=== PATIENT | male | born 1960 | race Caucasian/White ===

== ENCOUNTER 2020-01-27 11:52 | Outpatient (NON) | payer OTHER, SELFPAY ==
[2020-01-28 00:38] LABS: SARS-CoV-2 RNA PCR Negative
== END 2020-01-27 11:53 ==
PROVIDERS: PCP Internal Medicine; Visit Provider Internal Medicine
DX: Z20.828 Contact with and (suspected) exposure to other viral communicable diseases (principal)
CPT/HCPCS: 87635; C9803; U0003

== ENCOUNTER 2020-03-15 08:27 | Outpatient (CLI) | payer OTHER, SELFPAY ==
--- NOTE | ~2020-03-15 | NM_ITS ---
EXAMINATION: NM stress w perf spect multi DATE: 03/15/2020 11:24 INDICATION: Chest pain, unspecified. TECHNIQUE: Rest images were obtained following intravenous administration of 9.75 mCi Tc99m tetrofosm in (Myoview). The patient performed an exercise activity. At peak exercise, 27.6 mCi Tc99m tetrofosmi n (Myoview) was administered intravenously, and stress images were obtained. Data was reconstructed i nto short axis and horizontal and vertical long axis SPECT images. Gated SPECT images were also obtai dmitri. COMPARISON: None. FINDINGS: There is no definite reversible or fixed perfusion abnormality to suggest ischemia or infar ction. There is no segmental wall motion abnormality. Left ventricular ejection fraction measures > 70%. IMPRESSION: 1. No definite ischemia or infarct. 2. Normal left ventricular ejection fraction measuring >70%. Reviewed, dictated and finalized at location A. TORTILLA
--- NOTE | 2020-03-15 09:15 | EST_ITS ---
Patient Info Name: Elmo Monet Age: 59 years : 1960 Gender: Male Ht: 74 in Wt: 295 lbs BSA: 2.69 m2 Exam Date: 03/15/2020 9:50 AM Exam Location: [facility] Stress Patient Status: Outpatient Admit Date: 03/15/2020 Staff Ordering Physician: Mahad Barrios MD Attending Provider: Mahad Barrios MD Exercise Technologist: Ariadna Galarza RDCS Exercise Physician: Pablo Connors DO Exam Type: CA stress test treadmill w NM Study Info Indications R07.9 - Chest pain, unspecified A pharmacological stress test was performed. Summary 1. 1. Negative Kavon exercise stress test for ischemic ST changes by ECG criteria. 2. 2. Good functional capacity, achieving 10 METs of workload. 3. 3. Appropriate HR response to exercise. 4. 4. Appropriate HR recovery at 1 minute post exercise. 5. 5. Nuclear scan to follow and will be reported separately. Please correlate with it. 6. 6. Patient informed of the above results. Protocol: Kavon Stress ECG Details Stage: REST Duration (min): 1 min : 52 sec Speed (mph): 0.0 Grade (%): 0 HR (bpm): 70 SBP (mmHg): 142 DBP (mmHg): 84 METS: --- Stage: REST Duration (min): 13 min : 21 sec Speed (mph): 0.0 Grade (%): 0 HR (bpm): 74 SBP (mmHg): 142 DBP (mmHg): 84 METS: --- Stage: STAGE 1 Duration (min): 1 min : 0 sec Speed (mph): 1.7 Grade (%): 10 HR (bpm): 92 SBP (mmHg): 142 DBP (mmHg): 84 METS: --- Stage: STAGE 1 Duration (min): 2 min : 0 sec Speed (mph): 1.7 Grade (%): 10 HR (bpm): 102 SBP (mmHg): 142 DBP (mmHg): 84 METS: --- Stage: STAGE 1 Duration (min): 3 min : 0 sec Speed (mph): 1.7 Grade (%): 10 HR (bpm): 105 SBP (mmHg): 142 DBP (mmHg): 84 METS: --- Stage: STAGE 2 Duration (min): 1 min : 0 sec Speed (mph): 2.5 Grade (%): 12 HR (bpm): 111 SBP (mmHg): 166 DBP (mmHg): 64 METS: --- Stage: STAGE 2 Duration (min): 2 min : 0 sec Speed (mph): 2.5 Grade (%): 12 HR (bpm): 115 SBP (mmHg): 174 DBP (mmHg): 68 METS: --- Stage: STAGE 2 Duration (min): 3 min : 0 sec Speed (mph): 2.5 Grade (%): 12 HR (bpm): 118 SBP (mmHg): 174 DBP (mmHg): 68 METS: --- Stage: STAGE 3 Duration (min): 1 min : 0 sec Speed (mph): 3.4 Grade (%): 14 HR (bpm): 131 SBP (mmHg): 195 DBP (mmHg): 76 METS: --- Stage: STAGE 3 Duration (min): 2 min : 0 sec Speed (mph): 3.4 Grade (%): 14 HR (bpm): 135 SBP (mmHg): 195 DBP (mmHg): 76 METS: --- Stage: STAGE 3 Duration (min): 3 min : 0 sec Speed (mph): 3.4 Grade (%): 14 HR (bpm): 134 SBP (mmHg): 185 DBP (mmHg): 92 METS: --- Stage: RECOVERY Duration (min): 0 min : 59 sec Speed (mph): 0.0 Grade (%): 0 HR (bpm): 129 SBP (mmHg): 191 DBP (mmHg): 74 METS: --- Stage: JAZ
== END 2020-03-15 08:28 | disposition home or self-care (01) ==
PROVIDERS: PCP Internal Medicine; Visit Provider Internal Medicine
DX: R07.89 Other chest pain (principal)
CPT/HCPCS: 78452; 93017; A9502

== ENCOUNTER → 2020-10-12 10:03 | Outpatient (CLI) | payer OTHER, SELFPAY ==
[2020-10-13 16:32] LABS: SARS-CoV-2 RNA PCR Negative
== END ==
PROVIDERS: PCP Family Medicine; Visit Provider Family Medicine
DX: R05 Cough (principal); Z20.822 Contact with and (suspected) exposure to COVID-19
CPT/HCPCS: C9803; U0003; U0005

== ENCOUNTER 2020-11-01 08:04 | Outpatient (CLI) | payer OTHER, SELFPAY ==
--- NOTE | ~2020-11-01 | US_ITS ---
EXAMINATION: US art doppler w press LE BI DATE: 11/01/2020 09:06 INDICATION: Diabetic with hypercholesterolemia ascending with claudication, numbness and pain at the lower limbs. TECHNIQUE: Segmental pressures and plethysmographic and Doppler waveforms of the brachial and lower e xtremity arteries were obtained. COMPARISON: None. FINDINGS: Right and left brachial artery pressures of 148 mm Hg and 142 mm Hg, respectively, are concordant (no rmal difference <= 30 mmHg). The right and left high-thigh pressure indices are 1.13 and 1.24, respec tively (normal > 1.2). The right ankle-brachial index (SRINATH) is 1.09 (normal >= 0.9-1). The right great toe-brachial index (T BI) is 0.60 (normal >= 0.6-0.8). The right lower extremity segmental pressure gradients are normal (n ormal gradients <= 20-30 mmHg between adjacent levels on the same leg or the same levels on the two l egs). Arterial waveforms are triphasic at the right common femoral, superficial femoral and dorsalis pedis arteries and biphasic at the right popliteal and posterior tibial arteries with brisk systolic upstrokes throughout. The left SRINATH is 1.05. The left TBI is 0.82. The left lower extremity segmental pressure gradients are normal. Arterial waveforms are triphasic with brisk systolic upstrokes throughout the arteries of th e left lower limb. IMPRESSION: 1. Normal SRINATH's and TBI's bilaterally. No significant arterial occlusive disease. Reviewed, dictated and finalized at location A. IMPRESSION: 1. Normal SRINATH's and TBI's bilaterally. No significant arterial occlusive diseas e.
== END 2020-11-01 08:05 | disposition home or self-care (01) ==
PROVIDERS: PCP Family Medicine; Visit Provider Family Medicine
DX: R09.89 Other specified symptoms and signs involving the circulatory and respiratory systems (principal)
CPT/HCPCS: 93923

== ENCOUNTER → 2022-12-27 16:04 | Outpatient (CLI) | payer OTHER, SELFPAY ==
--- NOTE | ~2022-12-27 | XR_ITS ---
EXAMINATION: XR lumbar spine 6V w bending DATE: 12/27/2022 16:32 INDICATION: Low back pain TECHNIQUE: Anteroposterior, lateral in neutral, flexion and extension, and bilateral oblique views of the lumbar spine, and cone-down lateral view of the lumbosacral junction were obtained. COMPARISON: 05/13/2014 FINDINGS: Bone alignment is normal. There is no hypermobility with flexion or extension. There is mod erate loss of intervertebral disc space height at L3-4 and L4-5 without significant change. There is mild loss of disc space height throughout the remainder of the lumbar spine. The vertebral body heigh ts are maintained. There is no fracture. There is moderate to severe facet joint osteoarthritis of th e lower lumbar spine. IMPRESSION: 1. Moderate lumbar spondylosis with interval worsening. Reviewed, dictated and finalized at location L.
== END ==
PROVIDERS: PCP Physician Assistant; Visit Provider Physician Assistant
DX: M54.50 Low back pain, unspecified (principal); M47.896 Other spondylosis, lumbar region
CPT/HCPCS: 72114

== ENCOUNTER → 2023-01-05 15:27 | Outpatient (CLI) | payer OTHER, SELFPAY ==
--- NOTE | ~2023-01-05 | MR_ITS ---
MRI of the lumbar spine Clinical History: Back pain Technique: Axial T2-weighted images, and sagittal T1-weighted, T2-weighted, and T2 fat-sat images wer e acquired. Findings: There is no fracture or subluxation of the lumbar spine. Vertebral bodies maintain normal h eight and alignment. No suspicious bone marrow signal abnormality seen. At L1-L2, there is no significant disc bulge or herniation. There is mild to moderate facet arthropat hy. No central canal stenosis or neural foraminal narrowing. At L2-L3, there is minimal disc bulge with moderate to advanced facet arthropathy. No central canal s tenosis. There is mild left neural foraminal narrowing. Right neural foramen preserved. At L3-L4, there is mild disc bulge and moderate facet arthropathy. No central canal stenosis. There i s and mild to moderate right neural foraminal narrowing, and mild left neural foraminal narrowing. At L4-L5, there is mild disc bulge and moderate facet arthropathy. No central canal stenosis. There i s moderate to advanced left neural foraminal narrowing, and moderate right neural foraminal narrowing . At L5-S1, there is minimal disc bulge with moderate to severe facet arthropathy. No central canal jeffy nosis. There is mild to moderate left neural foraminal narrowing, and moderate right neural foraminal narrowing. Paravertebral soft tissues are unremarkable. Impression: [id number] degenerative spondylosis, with multilevel neural foraminal narrowing, as detailed ab danni. Reviewed, dictated and finalized at [facility]. Impression: [id number] degenerative spondylosis, with multilevel neural foraminal jonathan rowing, as detailed above.
== END ==
PROVIDERS: PCP Physician Assistant; Visit Provider Physician Assistant
DX: M43.06 Spondylolysis, lumbar region (principal)
CPT/HCPCS: 72148

== ENCOUNTER 2023-11-20 08:57 | Outpatient (CLI) | payer MEDICARE, OTHER, SELFPAY | END 2023-11-20 08:58 | disposition home or self-care (01) | LOC: ANHAUDIO 08:58 | PROVIDERS: PCP Internal Medicine; Visit Provider Internal Medicine | DX: H90.3 Sensorineural hearing loss, bilateral (principal) | CPT/HCPCS: 92557; 92567 ==

== ENCOUNTER 2023-12-05 08:43 | Outpatient (CLI) | payer MEDICARE, OTHER, SELFPAY ==
--- NOTE | ~2023-12-05 | XR_ITS ---
[id number]_[id number] Ordering provider: Pedro Gallardo DO History: . M54.2 - Cervicalgia . Comparison: None. FINDINGS: VERTEBRAL BODIES: Normal height and alignment. No visible fracture or subluxation. The dens is intact . DISK SPACES: Narrowing of the disc C4-C5, C5-C6 and C6-C7. Uncovertebral joint disease is also seen a t the same levels. Multilevel facet joint disease. PARASPINOUS SOFT TISSUES: No prevertebral soft tissue swelling. IMPRESSION: No acute osseous abnormality cervical spine. Reviewed, dictated and finalized at location A.
== END 2023-12-05 08:44 ==
PROVIDERS: PCP Internal Medicine; Visit Provider Internal Medicine
DX: M54.2 Cervicalgia (principal)
CPT/HCPCS: 72040

== ENCOUNTER 2024-03-24 08:00 | Outpatient (RCR) | payer MEDICARE, OTHER, SELFPAY ==
--- NOTE | 2023-12-31 16:58 | PTOPEVAL1 ---
Assessment and note entered by Sharifa Luis, PT Evaluation Information Assessment Status Evaluation Diagnosis neck pain and back pain ICD-10 Condition Codes (PT) Cervicalgia M54.2,Pain in low back M54.50,Weakness R53.1 Onset many years Subjective Information Has been dealing with this but is worsening Neck is tight, difficulty with driving. 2000 had a skull fracture that may have had an effect Can hear neck creaking and cracking Low back is a constant ache midline where back meets tailbone. Sitting aggravates it. Bending and picking up items irritates it. Difficulty putting on pants and sometimes will shoot down into right testicle. notices primarily with lifting LLE Notices maybe some ED related to back pain. Has had medication of OTC Tylenol and Ibuprofen. Has prescribed muscle relaxers, but doesn't like to take these Likes to do stretches, the homes TENS unit and is using this 5-6 days a week. 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 Stretches that doctor provided in the last couple years. Reported Pain Level Pain Score 1,1: Self Report Assessment PT Clinical Summary Pt presents with neck and back pain that has worsened over time. MRI from lumbar in the past shows multi-level degenerative changes, cervical spine is severely restricted in ROM with x-rays showing lack of cervical lordosis and decreased disc height throughout. Thoracic spine is also significantly restricted in motion. Pt also demo's some mild to moderate flexibility deficits in the hamstrings, quads, hip flexors and piriformis muscles. Lumbopelvic core musculature weakness is also a factor. Pt will greatly benefit from physical therapy to address deficits, reduce pain, and improve function to allow most active, independent, and pain-free lifestyle. Plan of Care Interventions Electrical Stimulation,Hot Pack/Cold Pack,Manual Therapy,Mechanical Traction,Neuro Re-education, Patient/Caregiver Educati,Therapeutic Activities, Therapeutic Exercise,Self-Care/Home Management, Ultrasound Other Interventions IASTM, taping PT Services Indicated Yes Treatment Frequency and 2x weekly x 20 visits Duration These treatments will address the objective and functional deficits as defined above. The patient will be advanced safely and appropriately in order for the patient to progress towards his/her prior level of function. Additional exercises will be introduced and as well as a comprehensive home exercise program upon discharge, if needed, ?to ensure carryover of functional gains achieved in the clinic. This treatment plan has been reviewed and agreement upon by the patient.
--- NOTE | 2023-12-31 16:58 | OPREHPOC ---
Outpatient Therapy Plan of Care This is a Multidisciplinary Plan of Care that may contain components documented by all disciplines (PT, OT, and ST.) PT Problem 1 PT Problem #1 Knowledge Deficit PT Goal 1 Goal / Goal Update Pt will be independent in HEP Pt will verbalize understanding of diagnosis and prognosis Target Visit 10 PT Problem 2 PT Problem #2 Pain PT Goal 1 Goal / Goal Update Pt will report lowest pain rating at 0/10 to show improvement in overall discomfort Target Visit 10 PT Goal 2 Goal / Goal Update Pt will report greatest pain level at 3/10 or less to improve ADLs and activities Target Visit 20 PT Problem 3 PT Problem #3 Impaired Flexibility PT Goal 1 Goal / Goal Update Pt will show only minimal flexibility deficits in issa piriformis mm Target Visit 10 PT Goal 2 Goal / Goal Update Pt will demo only mild flexibility deficit in hip flexors Target Visit 20 PT Problem 4 PT Problem #4 Impaired Range of Motion PT Goal 1 Goal / Goal Update Cervical ROM will show a 10 degree increase in all tested planes thoracic ROM will increase to only 50% restriction PT Goal 2 Goal / Goal Update Cervical ROM will show a 20 degree increase in all tested planes Pt will demo full lumbar ROM without pain PT Problem 5 PT Problem #5 Impaired Strength PT Goal 1 Goal / Goal Update TRAM will demo 3+/5 strength Target Visit 10 PT Goal 2 Goal / Goal Update Gluteus medius will demo 4+/5 strength issa Gluteus obie will demo 5/5 strength issa
--- NOTE | 2024-02-11 15:58 | PTOPPROG ---
Assessment and note entered by Sharifa Luis, PT Evaluation Information Assessment Status Progress Diagnosis neck pain and back pain ICD-10 Condition Codes (PT) Cervicalgia M54.2,Pain in low back M54.50,Weakness R53.1 Onset many years Subjective Information Reports increased pain for two days after lumbar traction last session. Had to take a pain pill because of discomfort. Sitting is still limited to a half hour. Bending still irritating, and pain shooting with dressing LE has resolved (but reports feels it had been resolved when started therapy) Neck with driving is still painful. Is still able to drive but is painful. Can only turn so far. Still feels as tight as it had previously. States feels that sessions are beneficial but has not seen improvement yet. Will feel sore and fatigued after sessions. Assessment PT Clinical Summary Pt continues to report neck and back pain that he reports he is able to perform activities with but in a limited capacity and with pain. Cont to have pain with bending at back, and turning with cervical spine. Today also demo's symptoms of pelvic upslip and T8 rotation causing discomfort. Greatest pain for low back has decreased from 7/10 to 4/10, thought Oswestry remains exactly the same as well as ROM measurements. Cervical spine pain reports are grossly the same as well, ROM is the same, and reports of function are the same. Pt demo's mild increase in strength with testing today. Plan of Care Interventions Electrical Stimulation,Hot Pack/Cold Pack,Manual Therapy,Mechanical Traction,Neuro Re-education, Patient/Caregiver Educati,Therapeutic Activities, Therapeutic Exercise,Self-Care/Home Management, Ultrasound Other Interventions IASTM, taping PT Services Indicated Yes Treatment Frequency and continue 1-2x weekly x 10 visits Duration These treatments will address the objective and functional deficits as defined above. The patient will be advanced safely and appropriately in order for the patient to progress towards his/her prior level of function. Additional exercises will be introduced and as well as a comprehensive home exercise program upon discharge, if needed, ?to ensure carryover of functional gains achieved in the clinic. This treatment plan has been reviewed and agreement upon by the patient.
--- NOTE | 2024-03-24 10:36 | PTOPPROG ---
Assessment and note entered by Sharifa Luis, PT Evaluation Information Assessment Status Progress Diagnosis neck pain and back pain ICD-10 Condition Codes (PT) Cervicalgia M54.2,Pain in low back M54.50,Weakness R53.1 Onset many years Subjective Information Self-perceived improvement: 20-25% Neck with driving is stiff, and tight. When I do too much is when the issue comes, but has been pretty good overall. Getting dressed and lifting left leg is much better. Reports still has difficulty with bending, but also states is not aware of bending correctly just reacts . Long periods in crouched position increases back pain. Assessment PT Clinical Summary Pt has attended therapy consistently for back and neck pain. Reports only feeling 20-25% improved overall, but does not LE dressing is greatly improved. Pt shows greatest improvement in lumbar ROM. However cont to have pain in R sacroiliac area with motion and resistance testing. Cont to demo sacral torsion and alignment deficits that improve with muscle energy techniques but then revert back. Added heel lift today to left shoe while patient is waiting for his ordered heel lift in the mail. Pt also demo's atrophy/weakness of gluteus minimus that is progressing slowly. Also discussed with patient importance of applying his education in therapy such as lifting and positioning if he wants to make improvements. Also discussed more aggressive POC this next round for improvement in overall motion and strength. Pt will benefit from continued therapy to continue progressing at a more aggressive rate and improve overall pain and function. Plan of Care Interventions Electrical Stimulation,Hot Pack/Cold Pack,Manual Therapy,Mechanical Traction,Neuro Re-education, Patient/Caregiver Educati,Therapeutic Activities, Therapeutic Exercise,Self-Care/Home Management, Ultrasound Other Interventions TENS/NMES unit, taping, bracing PT Services Indicated Yes Treatment Frequency and 1-2x weekly x 10 visits Duration These treatments will address the objective and functional deficits as defined above. The patient will be advanced safely and appropriately in order for the patient to progress towards his/her prior level of function. Additional exercises will be introduced and as well as a comprehensive home exercise program upon discharge, if needed, ?to ensure carryover of functional gains achieved in the clinic. This treatment plan has been reviewed and agreement upon by the patient.
--- NOTE | 2024-03-24 15:48 | PCPTNOTE ---
This treatment is being continued on visit number [id number]. Please see documentation on both accounts to view progress. Completed interventions, outcomes, and problems have been marked as Inactive to facilitate the copying of the Care plan routine for recurring accounts.
== END 2024-03-24 15:38 | disposition still patient (30) ==
LOC: ANHHIPT 08:00
PROVIDERS: PCP Internal Medicine; Visit Provider Internal Medicine
DX: M54.50 Low back pain, unspecified (principal); M54.12 Radiculopathy, cervical region
CPT/HCPCS: 97012; 97014; 97110; 97112; 97140; 97161; 97750; G0283

== ENCOUNTER 2024-06-16 10:30 | Outpatient (RCR) | payer MEDICARE, OTHER, SELFPAY ==
--- NOTE | 2024-05-13 17:01 | PTOPPROG ---
Assessment and note entered by Sharifa Luis, PT Evaluation Information Assessment Status Re-evaluation Diagnosis neck pain and back pain ICD-10 Condition Codes (PT) Cervicalgia M54.2,Weakness R53.1,Pain in low back M54.50 Onset many years Subjective Information Self-perceived improvement: 50-55% getting exercises done 4-5x weekly. Neck is still stiff with driving and turning head Back hurts up to a 4-5/10 with doing things like chipping ice. Has been walking the track at [facility] and is doing fine. Reports bending is still the issue. Also is not the bending and standing but the bending and staying in that position. Gets worse the longer in position. Assessment PT Clinical Summary Pt has attended therapy consistently for back and neck pain. shift in focus after last reevaluation for increasing hip ROM, stabilization of lumbar spine, and addressing leg length discrepancy appears to have improved both neck and back pain. Pt cont to have the worst pain with stopped positioning for long periods, does not appear to be completely compliant with instructions related to modifications of these activities due to the nature of positioning required for his activities. Is more compliant with exercise reports this last plan of care. Has improved in strength as well overall, but has not met all his therapy goals yet . Thus patient will benefit from continued physical therapy to increase intensity of strengthening and stabilization and prepare patient for independent maintenance at home after discharge from services. Plan of Care Interventions Electrical Stimulation,Hot Pack/Cold Pack,Manual Therapy,Mechanical Traction,Neuro Re-education, Patient/Caregiver Education,Therapeutic Activities ,Therapeutic Exercise,Self-Care/Home Management, Ultrasound,Other Other Interventions taping, bracing PT Services Indicated Yes Treatment Frequency and 1x weekly x 10 visits Duration These treatments will address the objective and functional deficits as defined above. The patient will be advanced safely and appropriately in order for the patient to progress towards his/her prior level of function. Additional exercises will be introduced and as well as a comprehensive home exercise program upon discharge, if needed, ?to ensure carryover of functional gains achieved in the clinic. This treatment plan has been reviewed and agreement upon by the patient.
--- NOTE | 2024-06-17 11:36 | PCPTNOTE ---
This treatment is being continued on visit number [id number]. Please see documentation on both accounts to view progress. Completed interventions, outcomes, and problems have been marked as Inactive to facilitate the copying of the Care plan routine for recurring accounts.
== END 2024-06-17 11:35 | disposition still patient (30) ==
LOC: ANHHIPT 10:30
PROVIDERS: PCP Internal Medicine; Visit Provider Internal Medicine
DX: M54.50 Low back pain, unspecified (principal); M54.12 Radiculopathy, cervical region
CPT/HCPCS: 97014; 97110; 97140; 97530; 97750; G0283

== ENCOUNTER 2024-06-24 07:56 | Outpatient (CLI) | payer MEDICARE, OTHER, SELFPAY | END 2024-06-24 07:57 | disposition home or self-care (01) | LOC: MICIMG 07:57 | PROVIDERS: PCP Internal Medicine; Visit Provider Internal Medicine | DX: K76.0 Fatty (change of) liver, not elsewhere classified (principal); R79.89 Other specified abnormal findings of blood chemistry | CPT/HCPCS: 76705 ==

== ENCOUNTER 2024-07-21 08:00 | Outpatient (RCR) | payer MEDICARE, OTHER, SELFPAY ==
--- NOTE | 2024-06-17 11:36 | PCPTNOTE ---
The treatment documented on this account is a continuation of the treatment documented on visit number [id number]. Please see documentation on both accounts to view progress. The Plan of Care has been transitioned and updated within the new V#. I have addressed and agree with the discipline specific Problems, Interventions, and Goals for the current certification period. Completed interventions, outcomes, and problems have been marked as Inactive to facilitate the copying of the Care plan routine for recurring accounts.
--- NOTE | 2024-07-21 08:57 | PTOPDC ---
Assessment and note entered by Sharifa Luis, PT Evaluation Information Assessment Status Discharge Diagnosis neck pain and back pain ICD-10 Condition Codes (PT) Cervicalgia M54.2,Weakness R53.1,Pain in low back M54.50 Onset many years Subjective Information Pt reports overall improvement at 79% Stiffness with bending over and bringing feet up without pain. Turning neck is improved Reported Pain Level Pain Score 0,1: Self Report Assessment PT Clinical Summary Pt has attended therapy consistently for both neck and back pain arthritis type presentation with additional curvature related to leg length discrepancy. Pt has applied heel lift to level pelvis in standing, improved ROM of multiple body parts, improved strength of multiple body parts and reports pain staying in mild ranges at all times ranging from 0-3/10. Pt reports feeling 79% improved overall from the beginning of therapy. Cont to demonstrate cervical spine stiffness, possible spondylosis type issue but without imaging this is not confirmed. Pt reports being consistent with HEP, and is using knowledge gained through sessions to adopt appropriate postures and mechanics during heavy lifting and other work related activities. Pt is pleased with his progress and has met or partially met all therapy related goals. Thus patient is being discharged from services for completion of POC. Plan of Care PT Services Indicated No
== END 2024-07-21 09:17 | disposition home or self-care (01) ==
LOC: ANHHIPT 08:00
PROVIDERS: PCP Internal Medicine; Visit Provider Internal Medicine
DX: M54.50 Low back pain, unspecified (principal); M54.12 Radiculopathy, cervical region
CPT/HCPCS: 97014; 97110; 97112; 97750; G0283